=== PATIENT | female | born 1950 | race Caucasian/White ===

== ENCOUNTER 2019-08-27 10:22 | Outpatient (REF) | payer MEDICARE, SELFPAY ==
[2019-08-27 14:09] LABS: ALT 18 U/L (14-59); AST 14 U/L (15-37); Albumin 3.9 g/dL (3.4-5.0); Alkaline Phosphatase 107 U/L (46-116); Anion Gap 9.6 mmol/L (3-11); BUN 12 mg/dL (7-18); Bilirubin, Total 0.8 mg/dL (0.2-1.0); CO2 31.4 mmol/L (21.0-32.0); CREATININE 0.73 mg/dL (0.55-1.02); Calculated LDL 85 mg/dL; Chloride 101 mmol/L (98-107); Cholesterol 181 mg/dL (50-200); Glucose 172 mg/dL (70-100); HDL Cholesterol 72 mg/dL (40-60); Potassium 4.1 mmol/L (3.5-5.1); Sodium 142 mmol/L (136-145); Total Protein 7.4 g/dL (6.4-8.2); Triglyceride 122 mg/dL (30-150)
== END 2019-08-27 10:42 ==
LOC: NCHCN 10:22
PROVIDERS: PCP Nurse Practitioner; Visit Provider Nurse Practitioner
DX: E11.9 Type 2 diabetes mellitus without complications (principal); I10 Essential (primary) hypertension; E78.5 Hyperlipidemia, unspecified
CPT/HCPCS: 80053; 80061

== ENCOUNTER 2020-01-20 02:45 | Outpatient (CLI) | payer MEDICARE, SELFPAY ==
--- NOTE | 2020-01-20 | DI.DEXA_ITS ---
EXAM: XR DEXA BONE DENSITY W/WO JOANNA INDICATION: POSTMENOPAUSAL, Z78.0, SCREENING FOR OSTEOPOROSIS, Z13.820. COMPARISON: No exams were available for comparison TECHNIQUE: Hologic densitometer FINDINGS: JOANNA image shows no definite compression fractures. Thoracic vertebral bodies are somewhat obscured b y lung markings. The bone mineral density measurements of the left hip correspond to a total T-score of -1.8 and a fem oral neck T-score of -2.1, in the osteopenic range. The bone mineral density measurements of the lum bar spine correspond to a total T-score of -1.6, in the osteopenic range. The bone mineral density m easurements of the right forearm correspond to a total T-score of -1.2 and a T-score of the distal 3r d of -0.7. IMPRESSION: Osteopenia of the lumbar spine and left hip. Normal bone mineral density of the left forearm. DATA REPOSITORY: RADIATION DOSE DELIVERED:
--- NOTE | 2020-01-20 15:24 | DI.MAMMO_ITS ---
EXAM: MAMMO SCREENING CLINICAL HISTORY: SCREENING, Z12.39 TECHNIQUE: Mammograms were interpreted according to the usual protocol including computer analysis w ROI² CAD system, tomosynthesis and C-view imaging. COMPARISON: 2012 and 2014 FINDINGS: The breasts are composed of scattered fibroglandular densities, Breast Density category B. No suspicious masses or suspicious microcalcifications are seen. Vascular calcifications are incidentally noted. No skin thickening or abnormal axillary lymph nodes are seen. There has been no significant change from prior exams. IMPRESSION: BIRADS Category 1, negative mammogram. Yearly screening mammography is recommended.
== END 2020-01-20 03:05 ==
PROVIDERS: PCP Nurse Practitioner; Visit Provider Nurse Practitioner
DX: Z12.31 Encounter for screening mammogram for malignant neoplasm of breast (principal); M85.88 Other specified disorders of bone density and structure, other site; Z78.0 Asymptomatic menopausal state
CPT/HCPCS: 77063; 77067; 77080

== ENCOUNTER → 2020-01-27 10:12 | Outpatient (BNVA) | payer MEDICARE, SELFPAY | PROVIDERS: PCP Nurse Practitioner; Referring Provider Nurse Practitioner; Visit Provider Physical Therapy Assistant | DX: Z12.11 Encounter for screening for malignant neoplasm of colon (principal); Z86.010 Personal history of colon polyps ==

== ENCOUNTER 2020-08-07 12:04 | Outpatient (REF) | payer MEDICARE, MEDICAID, SELFPAY ==
[2020-08-07 20:05] LABS: ALT 23 U/L (14-59); AST 19 U/L (15-37); Alkaline Phosphatase 92 U/L (46-116); Anion Gap 10.5 mmol/L (3-11); BUN 10 mg/dL (7-18); Bilirubin, Total 0.6 mg/dL (0.2-1.0); CO2 27.5 mmol/L (21.0-32.0); CREATININE 0.62 mg/dL (0.55-1.02); Calcium 9.7 mg/dL (8.5-10.1); Calculated LDL 88 mg/dL (<100); Chloride 102 mmol/L (98-107); Cholesterol 187 mg/dL (<200); Glucose 123 mg/dL (74-106); HDL Cholesterol 69 mg/dL (40-60); Sodium 140 mmol/L (136-145); Total Protein 7.7 g/dL (6.4-8.2); Triglyceride 153 mg/dL (<150)
== END 2020-08-07 12:24 ==
LOC: NCHCN 12:04
PROVIDERS: PCP Nurse Practitioner; Visit Provider Nurse Practitioner
DX: E11.9 Type 2 diabetes mellitus without complications (principal); I10 Essential (primary) hypertension; E78.5 Hyperlipidemia, unspecified
CPT/HCPCS: 80053; 80061; 83036

== ENCOUNTER → 2020-09-07 13:28 | Outpatient (BNVA) | payer MEDICARE, MEDICAID, SELFPAY | PROVIDERS: PCP Nurse Practitioner; Referring Provider Nurse Practitioner; Visit Provider Physical Therapy Assistant | DX: Z12.11 Encounter for screening for malignant neoplasm of colon (principal); Z86.010 Personal history of colon polyps; E11.9 Type 2 diabetes mellitus without complications; I10 Essential (primary) hypertension ==

== ENCOUNTER 2021-11-08 15:06 | Outpatient (REF) | payer MEDICARE, MEDICAID, SELFPAY ==
[2021-11-08 15:25] LABS: ALT 24 U/L (14-59); AST 15 U/L (15-37); Albumin 3.7 g/dL (3.4-5.0); Alkaline Phosphatase 87 U/L (46-116); Anion Gap 9.9 mmol/L (3-11); BUN 14 mg/dL (7-18); Bilirubin, Total 0.6 mg/dL (0.2-1.0); CO2 27.1 mmol/L (21.0-32.0); CREATININE 0.7 mg/dL (0.55-1.02); Calcium 9.5 mg/dL (8.5-10.1); Calculated LDL 101 mg/dL (<100); Chloride 103 mmol/L (98-107); Cholesterol 191 mg/dL (<200); Glucose 182 mg/dL (74-106); HDL Cholesterol 70 mg/dL (40-60); Potassium 3.6 mmol/L (3.5-5.1); Sodium 140 mmol/L (136-145); Total Protein 7.1 g/dL (6.4-8.2); Triglyceride 100 mg/dL (<150)
== END 2021-11-08 15:07 | disposition home or self-care (01) ==
LOC: NCHCN 15:06
PROVIDERS: PCP Nurse Practitioner; Visit Provider Nurse Practitioner
DX: E11.9 Type 2 diabetes mellitus without complications (principal); I10 Essential (primary) hypertension; E78.5 Hyperlipidemia, unspecified
CPT/HCPCS: 80053; 80061

== ENCOUNTER → 2022-10-07 14:25 | Outpatient (BNVA) | payer MEDICARE, SELFPAY | PROVIDERS: PCP Nurse Practitioner; Referring Provider Nurse Practitioner; Visit Provider Surgery | DX: Z12.11 Encounter for screening for malignant neoplasm of colon (principal); K63.5 Polyp of colon | CPT/HCPCS: 99242 ==

== ENCOUNTER 2022-10-08 13:52 | Outpatient (REF) | payer MEDICARE, SELFPAY ==
[2022-10-08 16:01] LABS: COMMENT (LAB VIEW ONLY) 15.07 mg/dL
== END 2022-10-08 13:53 | disposition home or self-care (01) ==
LOC: NCHCN 13:52
PROVIDERS: PCP Nurse Practitioner; Visit Provider Nurse Practitioner Family
DX: E11.9 Type 2 diabetes mellitus without complications (principal)
CPT/HCPCS: 82043; 82570

== ENCOUNTER 2022-11-04 19:10 | Outpatient (REF) | payer MEDICARE, SELFPAY ==
[2022-11-04 19:25] LABS: Abs Immature Grans 0.03 10^3/uL (0.0-0.06); Absolute Basophil Count 0.03 10^3/uL (0.0-0.2); Absolute Eosinophil Count 0.19 10^3/uL (0.0-0.7); Absolute Lymphocyte Count 1.41 10^3/uL (1.2-3.4); Absolute Monocyte Count 0.72 10^3/uL (0.1-0.8); Absolute Neutrophil Count 5.66 10^3/uL (1.2-6.7); Basophils % 0.4; Eosinophils % 2.4; HCT 39.4 % (36.0-46.0); Immature Grans % 0.4; Lymphocytes % 17.5; MCH 31.8 pg (27.0-33.0); MCV 96 fL (80-95); MPV 11.2 fL (8.0-11.0); Neutrophils % 70.3; Platelet Count 306 10^3/uL (130-400); RBC 4.09 10^6/uL (3.93-5.22); RDW 13.2 % (11.7-14.6); RDW-SD 46.9 fL; WBC 8.04 10^3/uL (4.4-10.8)
[2022-11-04 19:35] LABS: ALT 23 U/L (14-59); AST 27 U/L (15-37); Albumin 4.1 g/dL (3.4-5.0); Alkaline Phosphatase 85 U/L (46-116); Anion Gap 9.4 mmol/L (3-11); BUN 13 mg/dL (7-18); Bilirubin, Total 1.1 mg/dL (0.2-1.0); CO2 27.6 mmol/L (21.0-32.0); CREATININE 0.8 mg/dL (0.55-1.02); Calcium 10.1 mg/dL (8.5-10.1); Chloride 100 mmol/L (98-107); Estimated GFR 77.75 (mL/min/1.73m2); Glucose 149 mg/dL (74-106); Potassium 3.9 mmol/L (3.5-5.1); Sodium 137 mmol/L (136-145); Total Protein 7.9 g/dL (6.4-8.2)
== END 2022-11-04 19:11 | disposition home or self-care (01) ==
LOC: NCHCN 19:10
PROVIDERS: PCP Nurse Practitioner Family; Visit Provider Nurse Practitioner Family
DX: E11.9 Type 2 diabetes mellitus without complications (principal); E78.5 Hyperlipidemia, unspecified; I10 Essential (primary) hypertension
CPT/HCPCS: 80053; 85025

== ENCOUNTER → 2022-12-05 11:11 | Outpatient (BNVA) | payer MEDICARE, SELFPAY | PROVIDERS: PCP Nurse Practitioner Family; Referring Provider Nurse Practitioner Family; Visit Provider Physical Therapy Assistant | DX: Z12.11 Encounter for screening for malignant neoplasm of colon (principal); Z86.010 Personal history of colon polyps ==

== ENCOUNTER 2022-12-10 02:14 | Outpatient (CLI) | payer MEDICARE, SELFPAY ==
--- NOTE | 2022-12-10 | DI.MAMMO_ITS ---
Exam(s) MAMMO SCREENING EXAM: MAMMO SCREENING CLINICAL HISTORY: SCREENING MAMMO FOR BREAST CANCER Z12.39. TECHNIQUE: Bilateral full field digital CC and MLO mammographic images were obtained with 3D tomosyn thesis and utilizing computer aided detection (CAD). COMPARISON: Prior mammograms were reviewed. FINDINGS: There has been no significant change in the appearance and distribution of the fibroglandular tissue. There are no new spiculated masses nor malignant appearing microcalcification groups. Benign-appearing nodule laterally in left breast again noted and has appearance of benign intramammar y lymph node There is no significant architectural distortion nor skin thickening-retraction. IMPRESSION: No radiographic evidence of malignancy. BI-RADS Category 2 - Benign Findings Breast Density - Category B - Scattered areas of fibroglandular density Breast density Category C or D implies that the patient has dense breast tissue. Dense breast tissue can make it harder to find cancer on a mammogram. Dense breast tissue is also associated with an incr eased risk of breast cancer. This information about the result of the mammogram report was provided to the patient to raise their awareness. Use this report when you speak with the patient about their risks for breast cancer, which includes their family history. At that time, you may recommend additional screening tests (Ultrasoun d or MRI) as these tests may add significant information. A negative radiographic report should not delay biopsy if a dominant or clinically suspicious mass is present. Up to ten percent of cancers are not identified on mammography. A negative report may reinforce clinical impression. Adenosis and dense breasts may obscure an underlying neoplasm. False positive reports average 6 to 10%. Patient will receive a letter notifying them of these results.
== END 2022-12-10 02:34 ==
PROVIDERS: PCP Nurse Practitioner Family; Visit Provider Nurse Practitioner Family
DX: Z12.31 Encounter for screening mammogram for malignant neoplasm of breast (principal); R92.8 Other abnormal and inconclusive findings on diagnostic imaging of breast
CPT/HCPCS: 77063; 77067

== ENCOUNTER 2023-01-03 08:31 | Day surgery (SDC) | payer MEDICARE, SELFPAY ==
--- NOTE | 2023-01-02 16:21 | W.PM.DSUDISC ---
Date of service: 01/03/23 Time of Service: 11:53 Discharge Plan Disposition Patient Disposition: Home Condition: Good Discharge Details Reason For Visit: Screening colonoscopy Attending Provider: Edvin Ford Primary Care Provider: BROOK HALEY Home Meds and New Rx's Prescriptions: Continued aspirin [Aspir-Low] 81 MG tablet,delayed release (DR/EC) 81 mg PO DAILY famotidine 20 MG tablet 20 mg PO DAILY lisinopril 30 MG tablet 30 mg PO DAILY hydrochlorothiazide 12.5 mg tablet 12.5 mg PO DAILY atorvastatin 80 mg tablet 40 mg PO HS metformin 500 mg tablet extended release 24 hr 2,000 mg PO DAILY calcium phos,dibas-vitamin D3 77-400 mg-unit Tablet 1 tab PO DAILY amlodipine 5 mg tablet 7.5 mg PO DAILY Patient Comments: TK 1 AND 11/25 TS PO QD Discharge Instructions Instructions: Diverticulosis (GEN), Diverticulosis Diet (GEN), Colorectal Polyps (GEN) Additional Instructions: Mayuri, we were able to complete your colonoscopy without any difficulty today. The quality of the preparation was excellent. I removed a total of 7 polyps. I will follow-up with you regarding the pathology report once it is available. 1. If tolerated, consume a soft, low fiber diet for 1-2 days. 2. Do not drive, drink alcohol, operate machinery, make critical decisions, or do activities that require coordination or balance for 24 hours. 3. Because air was put into your colon during the procedure, expelling air from your rectum (passing gas or farting) is normal. 4. You may not have a bowel movement for 1-3 days because of the colonoscopy prep. This is normal. 5. Go directly to the emergency room if you notice any of the following: Develop chills (warm to touch), or if you have a thermometer and your temperature is above 101 Difficulty breathing or difficultly swallowing Persistent vomiting Severe abdominal pain, other than gas cramps Severe chest pain Black, tarry stools Any bleeding ? exceeding one tablespoon 6. Call your physician if the site where your intravenous was started becomes red, swollen, painful, and warm to touch. 7. Your physician has reviewed your pre-procedure medications. Please continue to take those medications as previously ordered. You will be given specific information/education regarding any changes to your medications before leaving. Stand Alone Forms: Julee Jin (DSU) Activity:: Activity as Tolerated Diet:: As Tolerated Discharge Orders Discharge Orders: Discharge Order (Routine); Ordered 01/02/23 Ordered By: Edvin Ford DS: Diagnosis Discharge Diagnosis (1) Screening for colon cancer: Status: Acute Asessment and Plan: Follow-up on polypectomy pathology report
--- NOTE | 2023-01-02 16:23 | W.COLOREPORT ---
Date of service: 01/03/23 Time of Service: 11:55 Colonoscopy Report Date of procedure: 01/03/23 Pre-op diagnosis general: screening colonoscopy Post-op diagnosis procedure note: other (Diverticulosis, colon polyps) Procedure: Colonoscopy with polypectomy Surgeon: Edvin Ford Anesthesia Type: General:No Airway Estimated blood loss (mL): 15 Pathology: other (Cecal polyp, polyps at 110 cm, 80 cm, 70 cm, large polyp at 30 cm) Complications: None Disposition: same day Indications: Mayuri is here for her follow-up screening colonoscopy Prep: Miralax/Dulcolax Procedure Start Time: 10:21 Procedure End Time: 10:49 Retraction Time: 19 Findings: Cecal polyp, polyp at 110 cm, cluster of 3 polyps at 80 cm, polyp at 70 cm, large polyp at 30 cm Procedure Description: After the induction of monitored anesthetic care, and with the patient in left lateral decubitus position, I began by performing an external anorectal exam.? Perineum and skin were normal, as was the anal verge.? There was no evidence of external hemorrhoids.? Next, I performed a digital rectal exam.? I did not appreciate any abnormal findings.? Next, I advanced a colonoscope into the rectal vault.? I performed retroflexion.? This was normal.? Using insufflation, I then advanced the colonoscope beyond the rectal folds and into the sigmoid colon before advancing towards the cecum.? There was sigmoid and descending colon diverticulosis. the quality of the prep was excellent.? The scope was noted to be in the cecum by identification of the ileocecal valve and appendiceal orifice. Immediately within the cecum was a 0.25 cm polyp. I removed this with cold forcep polypectomy. It was sessile in character, and there was minimal bleeding.? I then began withdrawing the colonoscope using repeated irrigation as necessary for full evaluation of the colonic mucosa. Around 110 cm from the anal verge I identified a 0.5 cm sessile polyp. ?I was able to remove this with a cold forceps. ?I examined the site, and there was minimal bleeding. Around 80 cm I found a small cluster of 3 polyps. The smallest was 0.25 cm. The largest was 0.75 cm. They were all sessile. I removed them all with cold forcep polypectomy, and there was minimal bleeding. Once this was completed, I continued to withdraw the scope and examine the remainder of the colonic mucosa.? I found another 0.5 cm sessile polyp at 70 cm and removed this with cold forceps. Finally, around 30 cm from the anal verge, I identified a large sessile polyp within the field of diverticulosis. I would estimate this was 1.25 cm. It was sessile. I was able to remove it with a energized snare. There was no bleeding. Because of the size of this, I did perform a tattoo here. Once the scope was withdrawn to the level of the rectum, great care was taken to examine portions of the rectal folds.? Finally, the scope was withdrawn and the patient was brought to the same-day surgery recovery unit as the anesthetic wore off. ?The findings and instructions were shared with the patient prior to discharge.
[2023-01-03 08:30] VITALS: BP 146/89; PULSE 99; RESP 20; TEMP 36.7; O2SAT 100
[2023-01-03] MEDS: Lactated Ringers 1,000 ML 80 ML IV (08:56)
--- NOTE | 2023-01-03 09:53 | W.ANESPRE ---
General Info Date of Service Date Performed: 01/03/23 Height: 5 ft 5 in Weight: 61.4 kg Body Mass Index (BMI): 22.5 Surgical Procedure: Operation Date: 01/03/23 10:35 Proposed Procedure Side Surgeon ca Ford MD Meds Allergies and Home Medications Allergies Allergy/AdvReac Type Severity Reaction Status Date / Time No Known Allergies Allergy Verified 01/03/23 08:20 Home Medication Medication Instructions Recorded aspirin 81 mg tablet,delayed 81 mg PO DAILY 03/17/15 release (Aspir-Low) famotidine 20 mg tablet 20 mg PO DAILY 03/17/15 lisinopril 30 mg tablet 30 mg PO DAILY 03/17/15 hydrochlorothiazide 12.5 mg tablet 12.5 mg PO DAILY 12/21/19 atorvastatin 80 mg tablet 40 mg PO HS 01/27/20 amlodipine 5 mg tablet 7.5 mg PO DAILY 02/08/20 metformin 500 mg tablet,extended 2,000 mg PO DAILY 01/31/22 release 24 hr calcium phosphate,dibasic 77 1 tab PO DAILY 10/23/22 mg-vitamin D3 400 unit tablet Current Visit Medications: Current Medications Generic Name Dose Route Start Last Admin Trade Name Freq PRN Reason Stop Dose Admin Hyoscyamine Sulfate 0.125 mg 01/02/23 16:23 Hyoscyamine 0.125 Mg Sl/Oral/Chew SL DIRECTED PRN Ringer's Solution 1,000 mls @ 80 mls/hr 01/03/23 06:00 01/03/23 08:56 IV 02/01/23 23:59 80 mls/hr INFUSION DONNIE Administration IV Miscellaneous Supplies 1 each 01/03/23 06:00 Iv Access IV 02/01/23 23:59 DIRECTED DONNIE Ondansetron HCl 4 mg 01/02/23 16:23 Ondansetron 4 Mg/2 Ml Vial IVP Q4H PRN PRN Nausea / Vomiting Sodium Chloride 0 ml 01/03/23 06:00 Normal Saline Flush 10 Ml Syr IV 02/01/23 23:59 PRN PRN Sodium Chloride 0 ml 01/03/23 06:00 Normal Saline 10 Ml Vial IJ 02/01/23 23:59 DIRECTED PRN Sterile Water 0 ml 01/03/23 06:00 Water,Injection,Sterile 10 Ml Vial IJ 02/01/23 23:59 DIRECTED PRN PFSH Active Problems Active Problems: Problem Status Onset Code Screening for colon cancer Z12.11 Medical History Medical History COVID 08/26/22 Diabetes Hyperlipidemia Hypertension Osteopenia Sessile colonic polyp (~2014) Tubulovillous adenoma of colon (~2014) Surgical History Surgical History (Updated 01/03/23 @ 08:54 by Annabel Houston) Abdominal hysterectomy for a fibroid History of section History of colonoscopy Oophrectomy, Left bening mass Tobacco Smoking/Tobacco Use Status: Never Alcohol Alcohol Intake: current Alcohol intake frequency: a few times a week Alcohol type: wine Substance Use Substance use: Never Substance use type: does not use Vital Signs and Lab Results Vital Signs Most Recent Vital Signs in EMR: Most Recent Vital Signs Temp Pulse Resp BP Pulse Ox 36.7 C 99 H 20 146/89 H 100 01/03/23 08:30 01/03/23 08:30 01/03/23 08:30 01/03/23 08:30 01/03/23 08:30 Point of Care Results Point of Care Results: Finger Stick Blood Glucose 130 01/03/23 08:55 Lab Results Blood Type / Crossmatch: No Data to Display Complete Blood Count: No Data to Display Complete Metabolic Panel: No Data to Display Liver Function Panel: No Data to Display Coagulation Panel: No Data to Display Cardiac Panel: No Data to Display Arterial Blood Gas: No Data to Display Venous Blood Gas: No Data to Display Pancreas Panel: No Data to Display Thyroid Panel: No Data to Display Infectious Disease: No Data to Display Blood Cultures: No Data to Display Toxicology Panel: No Data to Display Anesthesia Assessment and Plan Anesthesia History Personal History: No History of Anesthesia Complications Family History: No Family History of Anesthesia Complications Exercise Tolerance Exercise Tolerance: Metabolic Equivalents>4 Pertinent Negatives Pertinent Negatives: No Symptoms of GERD, No Major Cardiovascular Symptoms or Complaints and No Major Pulmonary Symptoms or Complaints Cardiac & Pulmonary Exam Cardiac Exam: Normal S1/S2 Heart Sounds Pulmonary Exam: Clear Bilateral Breath Sounds Implantable Cardiac Device Does patient have a Pacemaker or an ICD?: No Airway Exam Known Difficult Airway: No Mallampati Class: 3 Mouth Opening: Normal (> 3cm) Thyromental Distance: Greater than 3 cm Neck Range of Motion: Full ROM Neck Circumference: Normal Teeth Condition: Normal Dentition ASA Classification ASA Score: ASA 2 Emergency Case?: No NPO Status NPO Status: NPO Clears >2 hours, Solids >8 hours Anesthesia Plan Resuscitation Status: Full Code Anesthesia Technique: MAC Anesthesia Airway Planned: Natural Airway Monitors Used: Standard Monitors
[2023-01-03 09:56] VITALS: BMI 22.5
--- NOTE | 2023-01-03 10:30 | BOWEL_PTH ---
PATIENT: Mayuri Ross LOC: [facility] U#:[id number] AGE/SX: 72/F ROOM: RE01/03/[address]: Edvin Ford MD : 1950 BED: DIS: 01/03/2023 SPEC #: [id number] RECD: 01/03/23 12:42 STATUS: ISSA RE #: [id number] LETICIA: 01/03/23 10:[address]: Edvin Ford DEPT: Surgical Specimen RECD BY: Daisy Alexandra ENTERED: 01/03/23 12:44 SP TYPE: Bowel OTHR DR: BROOK HALEY, HISTOLOGY TECH Tissues: 1 - BIOPSY BOWEL 2 - BIOPSY BOWEL 3 - BIOPSY BOWEL 4 - BIOPSY BOWEL 5 - BIOPSY BOWEL Procedures: GROSS AND MICRO LEVEL 4 Comments: [id number]
[2023-01-03] MEDS: Endoscopic Tattoo 5 ML SYR IJ (10:47)
[2023-01-03 10:59] VITALS: BP 90/43; PULSE 68; RESP 16; TEMP 36.4; O2SAT 96
[2023-01-03 11:30] VITALS: BP 112/70; PULSE 75; RESP 16; TEMP 36.6; O2SAT 97
--- NOTE | 2023-01-03 11:46 | W.ANESPOSTOP ---
Postoperative Evaluation Date, Time and Location Date Performed: 01/03/23 Time Performed: 11:46 Patient Location: Day Surgery Unit Vital Signs Most Recent Imported Vital Signs: Most Recent Vital Signs Temp Pulse Resp BP Pulse Ox 36.6 C 75 16 112/70 97 01/03/23 11:30 01/03/23 11:30 01/03/23 11:30 01/03/23 11:30 01/03/23 11:30 Pain Score Most Recent Pain Score: Most Recent Pain Score Pain Level 0 01/03/23 11:30 Assessment Mental Status: Awake (Alert & Oriented to Patient Baseline) Airway and Respiratory Function: Patent airway with normal (patient baseline) respiratory exam Cardiovascular Function: Hemodynamically Stable Hydration Status: Adequately Hydrated Nausea & Vomiting: No Nausea or Vomiting Pain: Pt. Denies Any Pain Peripheral Nerve Block: Patient did not receive a nerve block
== END 2023-01-03 11:53 | disposition home or self-care (01) ==
PROVIDERS: PCP Nurse Practitioner Family; Visit Provider Surgery
PROC: 0DJD8ZZ Inspection of Lower Intestinal Tract, Via Natural or Artificial Opening Endoscopic (ICD-10-PCS; CPT 45378; principal; 2023-01-03 10:30)
DX: Z12.11 Encounter for screening for malignant neoplasm of colon (principal); K63.5 Polyp of colon; K57.30 Diverticulosis of large intestine without perforation or abscess without bleeding; K63.89 Other specified diseases of intestine
CPT/HCPCS: 45385; 45381; 45380; 88305

== ENCOUNTER 2023-07-02 17:07 | Outpatient (REF) | payer MEDICARE, SELFPAY ==
[2023-07-02 16:47] LABS: Hemoglobin A1C 7.1 % (<5.7)
[2023-07-02 16:49] LABS: Calculated LDL 76 mg/dL (<100); Cholesterol 168 mg/dL (<200); HDL Cholesterol 73 mg/dL (40-60); Triglyceride 98 mg/dL (<150)
== END 2023-07-02 17:08 | disposition home or self-care (01) ==
LOC: NCHCN 17:07
PROVIDERS: PCP Nurse Practitioner Family; Visit Provider Nurse Practitioner Family
DX: E11.9 Type 2 diabetes mellitus without complications (principal); I10 Essential (primary) hypertension; E78.5 Hyperlipidemia, unspecified
CPT/HCPCS: 80061; 83036

== ENCOUNTER 2024-03-16 14:51 | Outpatient (REF) | payer MEDICARE, SELFPAY ==
[2024-03-16 15:46] LABS: Anion Gap 9.9 mmol/L (3-11); BUN 13 mg/dL (7-18); CO2 29.1 mmol/L (21.0-32.0); CREATININE 0.8 mg/dL (0.55-1.02); Calcium 9.7 mg/dL (8.5-10.1); Chloride 103 mmol/L (98-107); Estimated GFR 77.27 (mL/min/1.73m2); Glucose 171 mg/dL (74-106); Sodium 142 mmol/L (136-145)
== END 2024-03-16 14:52 | disposition home or self-care (01) ==
LOC: NCHCN 14:51
PROVIDERS: PCP Nurse Practitioner Family; Visit Provider Nurse Practitioner Family
DX: E11.9 Type 2 diabetes mellitus without complications (principal)
CPT/HCPCS: 80048

== ENCOUNTER 2025-05-25 21:34 | Outpatient (REF) | payer MEDICARE, SELFPAY ==
[2025-05-26 05:41] LABS: COMMENT (LAB VIEW ONLY) 42.76 mg/dL; Microalb ug/mg Crea 8.4 ug/mg Cr
== END 2025-05-25 21:35 | disposition home or self-care (01) ==
LOC: NCHCN 21:34
PROVIDERS: PCP Nurse Practitioner Family; Visit Provider Nurse Practitioner Family
DX: E11.9 Type 2 diabetes mellitus without complications (principal)
CPT/HCPCS: 82043; 82565; 82570; 84156

== ENCOUNTER 2025-07-27 14:47 | Outpatient (CLI) | payer MEDICARE, SELFPAY ==
--- NOTE | 2025-07-27 14:25 | DI.MAMMO_ITS ---
Exam(s) MAMMO SCREENING EXAM: MAMMO SCREENING CLINICAL HISTORY: SCREENING, Z12.31 TECHNIQUE: Bilateral full field digital CC and MLO mammographic images were obtained with 3D tomosynthesis and utilizing computer aided detection (CAD). COMPARISON: Comparison is made with prior examinations. FINDINGS: Masses/Architectural Distortion: There has been interval increase in size of a nodule in the central left breast on the craniocaudad view 6 cm from the nipple. It measures 6 mm compared to 3 mm on the prior examination. There otherwise stable bilateral breast nodules/densities. Microcalcifications: No suspicious pleomorphic-type are seen. Skin Thickening/Nipple Retraction: None. IMPRESSION: 1. Interval increase in size of the left breast nodule. 2. Spot compression views requested for further evaluation. Ultrasound may be indicated at that time. BI-RADS Category 0 - Incomplete: Need additional imaging evaluation Breast Density - Category B - There are scattered areas of fibroglandular density. Breast density Category C or D implies that the patient has dense breast tissue. Dense breast tissue can make it harder to find cancer on a mammogram. Dense breast tissue is also associated with an increased risk of breast cancer. This information about the result of the mammogram report was provided to the patient to raise their awareness. Use this report when you speak with the patient about their risks for breast cancer, which includes their family history. At that time, you may recommend additional screening tests (Ultrasound or MRI) as these tests may add significant information. A negative radiographic report should not delay biopsy if a dominant or clinically suspicious mass is present. Up to ten percent of cancers are not identified on mammography. A negative report may reinforce clinical impression. Adenosis and dense breasts may obscure an underlying neoplasm. False positive reports average 6 to 10%. Patient will receive a letter notifying them of these results.
== END 2025-07-27 15:07 ==
LOC: DI 14:47
PROVIDERS: PCP Nurse Practitioner Family; Visit Provider Nurse Practitioner Family
DX: Z12.31 Encounter for screening mammogram for malignant neoplasm of breast (principal); N63.20 Unspecified lump in the left breast, unspecified quadrant
CPT/HCPCS: 77063; 77067

== ENCOUNTER 2025-08-17 01:47 | Outpatient (CLI) | payer MEDICARE, MEDICAID, SELFPAY ==
--- NOTE | 2025-08-17 | DI.US_ITS ---
Exam(s) MG MAMMO SCREEN CALL BACK UNI US BREAST LT COMPLETE EXAM: MG MAMMO SCREEN CALL BACK UNI and U/S breast LT complete CLINICAL HISTORY: INTERVAL INCREASE SIZE LEFT BREAST NODULE R92.8 ABNL MAMMO. TECHNIQUE: Craniocaudal and mediolateral oblique Full Field Digital Mammography views of the left breast with Computer Aided Diagnosis followed by Tomosynthesis and left breast ultrasound. All 4 quadrants of the left breast, the left axilla and left retroareolar regions were evaluated sonographically. COMPARISON: Comparison is made with prior examinations. FINDINGS: Mammography/Tomosynthesis: Masses/Architectural Distortion: The well-circumscribed nodule is again seen in the central breast 5-6 cm from the nipple. There are no spiculated nodules present. Microcalcifictions: No suspicious pleomorphic-type are seen. Skin Thickening/Nipple Retraction: None. Complete left breast US: Echotexture: Normal appearance of the glandular tissue. Shadowing: No suspicious foci. Cyst: There is a 0.3 x 0.3 x 0.5 cm cyst at the 5 o'clock position of the left breast 5 cm from the nipple. This would appear to correspond to the mammographic abnormality. There is also a cyst at the 4 o'clock position of the left breast 3 cm from the nipple measuring 2 mm. There is a cyst at the 5 o'clock position of the left breast 2 cm from the nipple measuring 4 mm. Solid lesions: None seen. Ductal dilation: None. IMPRESSION: 1. No evidence of malignancy is noted. The findings correspond to a 0.5 cm cyst at the 5 o'clock position of the left breast. 2. Unless there is more urgent need, follow-up screening mammography is recommended, as per [employer] [employer] guidelines. 3. The findings were discussed with the patient on the date of the examination. BI-RADS Category 2 - Benign Findings Breast Density - Category B - There are scattered areas of fibroglandular density. Breast density Category C or D implies that the patient has dense breast tissue. Dense breast tissue can make it harder to find cancer on a mammogram. Dense breast tissue is also associated with an increased risk of breast cancer. This information about the result of the mammogram report was provided to the patient to raise their awareness. Use this report when you speak with the patient about their risks for breast cancer, which includes their family history. At that time, you may recommend additional screening tests (Ultrasound or MRI) as these tests may add significant information. A negative radiographic report should not delay biopsy if a dominant or clinically suspicious mass is present. Up to ten percent of cancers are not identified on mammography. A negative report may reinforce clinical impression. Adenosis and dense breasts may obscure an underlying neoplasm. False positive reports average 6 to 10%. Patient will receive a letter notifying them of these results.
== END 2025-08-17 02:07 ==
PROVIDERS: PCP Nurse Practitioner Family; Visit Provider Nurse Practitioner Family
DX: Z12.31 Encounter for screening mammogram for malignant neoplasm of breast (principal); N63.23 Unspecified lump in the left breast, lower outer quadrant
CPT/HCPCS: 76642; 77063; 77067

== ENCOUNTER 2025-08-24 10:19 | Outpatient (REF) | payer MEDICARE, MEDICAID, SELFPAY ==
[2025-08-24 16:13] LABS: Hemoglobin A1C 6.6 % (<5.7)
[2025-08-24 16:36] LABS: ALT 13 U/L (14-59); AST 17 U/L (15-37); Albumin 3.8 g/dL (3.4-5.0); Alkaline Phosphatase 51 U/L (46-116); Anion Gap 9.2 mmol/L (3-11); BUN 12 mg/dL (7-18); Bilirubin, Total 0.4 mg/dL (0.2-1.0); CO2 28.8 mmol/L (21.0-32.0); Calcium 9.6 mg/dL (8.5-10.1); Calculated LDL 82 mg/dL (<100); Chloride 103 mmol/L (98-107); Cholesterol 162 mg/dL (<200); Estimated GFR 93.55 (mL/min/1.73m2); Glucose 109 mg/dL (74-106); HDL Cholesterol 56 mg/dL (>or=50); Potassium 4.1 mmol/L (3.5-5.1); Sodium 141 mmol/L (136-145); Total Protein 6.8 g/dL (6.4-8.2); Triglyceride 121 mg/dL (<150); Vitamin D 25 Total 60 ng/mL (30-100)
== END 2025-08-24 10:20 | disposition home or self-care (01) ==
LOC: NCHCN 10:19
PROVIDERS: PCP Nurse Practitioner Family; Visit Provider Nurse Practitioner Family
DX: I10 Essential (primary) hypertension (principal); E78.5 Hyperlipidemia, unspecified; E11.9 Type 2 diabetes mellitus without complications; M85.80 Other specified disorders of bone density and structure, unspecified site
CPT/HCPCS: 80053; 80061; 82306; 83036